=== PATIENT | female | born 1945 | race Asian ===

== ENCOUNTER → 2024-08-24 | Outpatient (CLI) | payer MEDICARE, OTHER ==
[~2024-08-24] VITALS: Ht 152.4 cm; Wt 50.0 kg
[~2024-08-24] MED LIST: AMLO-258 PO; AZEL137S8 NASAL; BUDE10.27 IH; FLUT16SP NASAL; LOSA-382 PO; SIMV-260 PO
[2024-08-24 10:35] VITALS: BP 132/65; PULSE 90; RESP 20; TEMP 99; O2SAT 99
== END | disposition home or self-care (01) ==
LOC: SRCNTR 09:48
PROVIDERS: ATTEND Internal Medicine
DX: J40 Bronchitis, not specified as acute or chronic (principal); B34.9 Viral infection, unspecified; D64.9 Anemia, unspecified; I10 Essential (primary) hypertension; J00 Acute nasopharyngitis [common cold]; Z79.51 Long term (current) use of inhaled steroids; Z79.899 Other long term (current) drug therapy
CPT/HCPCS: G0463; Z7500